=== PATIENT | male | born 1965 | race Hispanic/Latino ===

== ENCOUNTER 2018-09-19 12:35 | Outpatient (CLI) | payer OTHER | END 2018-09-19 12:36 | disposition home or self-care (01) | PROVIDERS: ATTEND Student in an Organized Health Care Education/Training Program | DX: R00.2 Palpitations (principal) | CPT/HCPCS: 93225; 93226 ==

== ENCOUNTER 2018-10-31 09:06 | Day surgery (SDC) | payer OTHER ==
--- NOTE | 2018-10-30 14:06 | HP ---
HISTORY OF PRESENT ILLNESS: This is a 53-year-old [place] male comes for a colonoscopy for colon cancer screening. The patient did have some mild hematochezia recently. Found the patient with hemorrhoids. The patient has no family history of colon cancer. The patient is undergoing colonoscopy for colon cancer screening. ALLERGIES: NONE. SOCIAL HISTORY: The patient smokes cigars occasionally. He also drinks socially. MEDICAL ILLNESS: 1. Obesity. 2. Diabetes. 3. Hyperlipidemia. 4. History of irregular heart rate. 5. Right thumb surgery. 6. Vasectomy. PHYSICAL EXAMINATION: VITAL SIGNS: His weight is 296 pounds. Pulse is 72, blood pressure is 130/80. CARDIOVASCULAR: First and second heart sounds heard. LUNGS: Clear to auscultation. ABDOMEN: Soft. No organomegaly. No tenderness. No masses. ADMITTING DIAGNOSIS: A 53-year-old male comes for a colonoscopy for colon cancer screening. Job ID: [id number]
[2018-10-30 17:23] VITALS: BMI 40.1
[2018-10-31] MEDS ORDERED: Lidocaine 1% PF 5 ML VIAL ONE (13:01)
[2018-10-31] MEDS ORDERED: PROPOFOL 200 MG/20 ML VIAL ONE (13:01)
--- NOTE | 2018-10-31 15:13 | OP ---
DATE OF PROCEDURE: 10/31/2018 PREOPERATIVE DIAGNOSIS: A 53-year-old male, undergoing colonoscopy for colon cancer screening. POSTOPERATIVE DIAGNOSES: 1. Sigmoid diverticular disease. 2. Hemorrhoids. 3. Sessile polyp in distal transverse colon status post snare cautery with good hemostasis. OPERATIVE PROCEDURE: Colonoscopy with polypectomy. PROCEDURE: The patient was placed on his left lateral position and was given sedation by Anesthesia Department. The rectal exam was done before the scope was advanced into the rectum. No lesions felt on rectal exam. A [employer] video colonoscope was introduced into the rectum and advanced all the way into the cecum. In the appendicular opening, ileocecal valve, and cecum, no pathology seen. In the ascending colon, hepatic flexure, and proximal transverse colon, no pathology. The distal transverse colon just past the splenic flexure had a sessile polyp. This was removed with snare cautery with good hemostasis. Another small sessile polyp seen in the same location , but was not removed, as it was lost to sight. In the splenic flexure and descending colon, no pathology. The sigmoid colon showed scattered diverticular disease. Rectal showed hemorrhoids. DISCHARGE PLANNING: This a 53-year-old male, came for colonoscopy for cancer screening. He underwent colonoscopy with polypectomy. DISCHARGE RECOMMENDATIONS: 1. The patient was advised to call me if he develops abdominal pain, hematochezia. 2. In the absence of any above symptoms, he will come back to me in 2 weeks. Job ID: [id number] [id number]
== END 2018-10-31 12:13 | disposition home or self-care (01) ==
LOC: SDC 09:06
PROVIDERS: ATTEND Internal Medicine Gastroenterology
PROC: 0DBL8ZX Excision of Transverse Colon, Via Natural or Artificial Opening Endoscopic, Diagnostic (ICD-10-PCS; principal; 2018-10-31)
DX: Z12.11 Encounter for screening for malignant neoplasm of colon (principal); K63.5 Polyp of colon; K57.30 Diverticulosis of large intestine without perforation or abscess without bleeding; K64.9 Unspecified hemorrhoids; F17.290 Nicotine dependence, other tobacco product, uncomplicated; E78.5 Hyperlipidemia, unspecified; E11.9 Type 2 diabetes mellitus without complications; E66.9 Obesity, unspecified; Z68.41 Body mass index [BMI] 40.0-44.9, adult; Z98.52 Vasectomy status; Z79.82 Long term (current) use of aspirin; Z79.84 Long term (current) use of oral hypoglycemic drugs; Z79.899 Other long term (current) drug therapy; Z98.890 Other specified postprocedural states
CPT/HCPCS: 88305

== ENCOUNTER 2025-05-23 15:04 | Outpatient (CLI) | payer OTHER ==
[2025-05-23 14:13] LABS: Estimated GFR - POC 76.0
[~2025-05-23 15:04] MED LIST: Iopamidol 370 76% 100 ML VIAL ONE
== END 2025-05-23 15:05 | disposition home or self-care (01) ==
LOC: CT 15:04
PROVIDERS: ATTEND Urology
DX: R31.0 Gross hematuria (principal); N13.5 Crossing vessel and stricture of ureter without hydronephrosis; N28.1 Cyst of kidney, acquired; K57.30 Diverticulosis of large intestine without perforation or abscess without bleeding; R93.2 Abnormal findings on diagnostic imaging of liver and biliary tract
CPT/HCPCS: 36415; 74178; 82565; Q9967